=== PATIENT | female | born 1995 | race African-American/Black ===

== ENCOUNTER 2018-02-11 07:19 | Inpatient (IN) ==
[2018-02-11] MEDS ORDERED: LABETALOL 100 MG TABLET ONE (08:26)
[2018-02-11] MEDS: LABETALOL 100 MG TABLET PO SCH ×2 (08:29→21:30)
[2018-02-11] MEDS ORDERED: BUTORPHANOL 1 MG/ML VIAL IV ONE (10:29)
[2018-02-11] MEDS ORDERED: ONDANSETRON 4 MG/2 ML VIAL IV ONE ×2 (10:29→15:02)
[2018-02-11] MEDS ORDERED: hydrALAZINE 20 MG/1 ML VIAL IV PRN (10:30)
[2018-02-11 10:31] LABS: Apearance,Urine CLEAR (Clear); Bilirubin,Urine Negative (Negative); Blood, Urine Moderate mg/dL (Negative); Glucose,Urine (UA) Negative (Negative); Ketones,Urine Negative (Negative); Mucus,Urine Occasional /LPF (Occasional); Nitrite,Urine Negative (Negative); Protein,Urine Negative; RBC,Urine 1 /HPF (0-4); Squamous Epithelial Cell,Urine Occasional /HPF (0-10); Urine Color Straw (Yellow); Urine Specific Gravity 1.004 (1.001-1.035); Urine Urobilinogen < 2.0 EU/DL (0.2-1.0); WBC,Urine 1 /HPF (0-6)
[2018-02-11] MEDS: LACTATED RINGERS 1,000 ML IV SCH ×3 (11:10→18:09)
[2018-02-11] MEDS ORDERED: ONDANSETRON 4 MG/2 ML VIAL IV PRN ×2 (14:11→21:15)
[2018-02-11 14:36] LABS: Basophils % 0.2 % (0.0-0.8); Eosinophils % 0.2 % (0.00-10.9); Hematocrit 29.5 VOL% (35.7-47.0); Hemoglobin 9.4 GM/DL (12.0-16.0); Immature Granulocytes % 1.4 %; Immature Granulocytes Absolute 0.13 #; Lymphocytes # 1.1 10*3/uL (1.4-4.0); Lymphocytes % 11.6 % (21.3-54.2); Mean Corpuscular HGB Conc 31.9 GM/DL (32-36); Mean Corpuscular Hemoglobin 26 PG (27-34); Mean Corpuscular Volume 82.9 FL (87-102); Mean Platelet Volume 13.5 FL (9.6-12.0); Monocytes # 0.5 10*3/uL (0.11-0.8); Monocytes % 5.7 % (1.7-12.7); Neutrophils # 7.4 10*3/uL (1.4-7.4); Neutrophils % 80.9 % (38.7-73.9); Platelet Count 175 T/CUMM (130-400); Red Blood Count 3.56 MC/CUMM (3.8-5.5); Red Cell Distribution Width 15.6 % (9.3-17.3); White Blood Count 9.2 T/CUMM (4-12)
[2018-02-11 14:54] LABS: INR 0.9; PT Patient Result 9.8 SECS; Partial Thromboplastin Time 35.2 SECS (0-40)
[2018-02-11 14:56] LABS: Alanine Aminotransferase 13 U/L (13-56); Albumin 2.3 G/DL (3.4-5.0); Alkaline Phosphatase 219 U/L (45-117); Aspartate Amino Transferase 20 U/L (0-37); Bilirubin,Total < 0.39 MG/DL (0.2-1.0); Blood Urea Nitrogen 4 MG/DL (7-18); Calcium 8.4 MG/DL (8.5-10.1); Glucose 80 MG/DL (74-106); Osmolality,Calculated 272.5 MOS/KG (273-304); Potassium 3.1 MMOL/L (3.5-5.1); Sodium 139 MMOL/L (136-145); Total Protein 6.5 G/DL (6.4-8.3); Uric Acid 3.6 MG/DL (2.6-6.0)
[2018-02-11] MEDS ORDERED: ePHEDrine 50 MG/ML AMP IV PRN (15:02)
[2018-02-11] MEDS ORDERED: diphenhydrAMINE 50 MG/1 ML VIAL IV PRN ×2 (15:02)
[2018-02-11] MEDS ORDERED: hydrOXYzine HCL 25 MG/1 ML VIAL IM PRN (15:02)
[2018-02-11] MEDS ORDERED: CITRIC ACID/SODIUM CITRATE 30 ML UDCUP PO ONE (15:02)
[2018-02-11] MEDS ORDERED: PROMETHAZINE 25 MG/1 ML VIAL IM ONE (15:02)
[2018-02-11] MEDS ORDERED: FAMOTIDINE 20 MG/2 ML VIAL IV ONE (15:02)
[2018-02-11] MEDS ORDERED: OXYTOCIN/LR 20 UNIT/1,000 ML BAG IV ONE ×2 (15:03→21:15)
[2018-02-11] MEDS ORDERED: LACTATED RINGERS 1,000 ML IV SCH (15:30)
[2018-02-11] MEDS ORDERED: fentaNYL 2 MCG/ROPIV 0.2% EPID 150 ML EPIDURAL SCH (15:30)
[2018-02-11] MEDS ORDERED: OXYTOCIN/LR 20 UNIT/1,000 ML BAG IV SCH (18:30)
[2018-02-11] MEDS ORDERED: LIDOCAINE 1% 50 ML VIAL ONE (19:17)
[2018-02-11] MEDS ORDERED: miSOPROStol 200 MCG TABLET ONE (19:17)
[2018-02-11] MEDS ORDERED: CARBOPROST TROMETHAMINE 250 MCG/ML AMP IM ONE (19:18)
[2018-02-11 21:10] LABS: Cord Arterial Blood HCO3 22.4 MMOL/L
[2018-02-11 21:13] LABS: Cord Venous Blood HCO3 21.6 MMOL/L; Cord Venous Blood PCO2 41.9 MMHG; Cord Venous Blood PO2 24.6 MMHG
[2018-02-11] MEDS ORDERED: LANOLIN 50% CREAM 0.3 OZ TUBE TOP PRN (21:15)
[2018-02-11] MEDS ORDERED: BISACODYL 10 MG SUPP RECTAL PRN (21:15)
[2018-02-11] MEDS ORDERED: ACETAMINOPHEN 325 MG TABLET PO PRN (21:15)
[2018-02-11] MEDS ORDERED: oxyCODONE/ACETAMINOPHEN 5-325 MG TABLET PO PRN (21:15)
[2018-02-11] MEDS ORDERED: WITCH HAZEL PADS 100/JAR TOP PRN (21:15)
[2018-02-11] MEDS ORDERED: BENZOCAINE 20%/MENTHOL 0.5% SPRAY 56 GM CAN TOP PRN (21:15)
[2018-02-11] MEDS ORDERED: HYDROCORTISONE 2.5% RECTAL CREAM 30 GM TUBE TOP PRN (21:15)
[2018-02-11] MEDS ORDERED: RHO(D) IMMUNE GLOBULIN 300 MCG SYRINGE IM ONE (21:30)
[2018-02-11] MEDS ORDERED: DIPH/TET/ACEL PERT BOOSTER VACCINE 0.5 ML VIAL IM ONE (21:30)
[2018-02-11] MEDS ORDERED: MEASLES/MUMPS/RUBELLA VACCINE 0.5 ML VIAL SUBCUT ONE (21:30)
[2018-02-11] MEDS: IBUPROFEN 800 MG TABLET PO PRN (23:10)
[2018-02-11] MEDS: oxyCODONE/ACETAMINOPHEN 5-325 MG TABLET PO PRN (23:10)
[2018-02-12] MEDS: DOCUSATE SODIUM 100 MG CAPSULE PO SCH ×2 (08:27→20:40)
[2018-02-12] MEDS: oxyCODONE/ACETAMINOPHEN 5-325 MG TABLET PO PRN ×2 (08:28→15:33)
[2018-02-12] MEDS: LABETALOL 100 MG TABLET PO SCH ×2 (08:28→20:40)
[2018-02-12 08:33] LABS: Basophils % 0.2 % (0.0-0.8); Eosinophils % 0.2 % (0.00-10.9); Hematocrit 27.7 VOL% (35.7-47.0); Hemoglobin 8.8 GM/DL (12.0-16.0); Immature Granulocytes % 0.6 %; Immature Granulocytes Absolute 0.08 #; Lymphocytes # 1.9 10*3/uL (1.4-4.0); Lymphocytes % 14.7 % (21.3-54.2); Mean Corpuscular HGB Conc 31.8 GM/DL (32-36); Mean Corpuscular Hemoglobin 27 PG (27-34); Mean Corpuscular Volume 84.5 FL (87-102); Mean Platelet Volume 13.8 FL (9.6-12.0); Monocytes # 0.9 10*3/uL (0.11-0.8); Monocytes % 6.9 % (1.7-12.7); Neutrophils # 9.8 10*3/uL (1.4-7.4); Neutrophils % 77.4 % (38.7-73.9); Platelet Count 171 T/CUMM (130-400); Red Blood Count 3.28 MC/CUMM (3.8-5.5); White Blood Count 12.6 T/CUMM (4-12)
[2018-02-13] MEDS: oxyCODONE/ACETAMINOPHEN 5-325 MG TABLET PO PRN (00:20)
[2018-02-13] MEDS: IBUPROFEN 800 MG TABLET PO PRN ×2 (07:49→22:07)
[2018-02-13] MEDS: LABETALOL 100 MG TABLET PO SCH ×2 (09:36→21:00)
[2018-02-13] MEDS: DOCUSATE SODIUM 100 MG CAPSULE PO SCH ×2 (09:37→20:59)
[2018-02-14] MEDS: DOCUSATE SODIUM 100 MG CAPSULE PO SCH (08:38)
[2018-02-14] MEDS ORDERED: NIFEdipine 10 MG CAPSULE PO SCH (10:01)
[2018-02-14 11:57] VITALS: BP 144/80
== END 2018-02-14 13:00 | disposition home or self-care (01) | DRG 560 ==
LOC: N.LDOUT 07:19 → N.LD 07:22 → N.OB 02-12 00:20
PROVIDERS: ADMIT Obstetrics & Gynecology; ATTEND Obstetrics & Gynecology